=== PATIENT | female | born 1985 | race American Indian/Alaskan Native ===

== ENCOUNTER 2016-09-07 21:41 | Emergency (ER) | payer SELFPAY ==
[2016-09-07 22:02] VITALS: BP 99/55; PULSE 88; RESP 18; TEMP 98.4; O2SAT 93
[2016-09-07 23:18] LABS: HEMATOCRIT 33.5 % (34.0-47.0); MEAN CELL VOLUME 94.8 fl (81.0-99.0); MEAN CORPUSCULAR HGB CONC 32.7 g/dL (33.0-37.0); RED CELL DISTRIBUTION WIDTH 13.8 % (11.5-14.5); WHITE BLOOD COUNT 6.5 K/uL (4.8-10.8)
--- NOTE | 2016-09-07 23:19 | ED PDOC ---
HPI: General Adult Time Seen by Provider: 09/07/16 22:39 Chief Complaint (Nursing): Abdominal Pain Chief Complaint (Provider): urinary frequency, pelvic pain, flank pain History Per: Patient History/Exam Limitations: no limitations Onset/Duration Of Symptoms: Days Have you had recent travel within the past 21 days to any of the following countries: [place], [place], [place] or [place]?: No Current Symptoms Are (Timing): Still Present Additional Complaint(s): 31yo female presents to the ED with multiple complaints including urinary frequency, occasional pelvic pain, and b/l flank pain. Patient had a CT 3 days ago that was negative. Had US today that showed follicles in ovaries and is scheduled for a colposcopy. Denies dysuria, n/v. Patient has retained normal BMs. Past Medical History Reviewed: Historical Data, Nursing Documentation, Vital Signs Vital Signs: Last Vital Signs Temp 98.4 F 09/07/16 21:58 Pulse 88 09/07/16 21:58 Resp 18 09/07/16 21:58 BP 99/55 L 09/07/16 21:58 Pulse Ox 93 L 09/07/16 23:22 - Medical History PMH: Anemia Denies: Chronic Kidney Disease - Surgical History Surgical History: No Surg Hx - Family History Family History: States: No Known Family Hx - Home Medications Home Medications: Ambulatory Orders Medication Instructions Recorded Naproxen [Naprosyn] 500 mg PO BID PRN #14 tablet 05/05/16 Cholecalciferol (Vitamin D3) 2,000 unit PO DAILY 09/07/16 [Vitamin D3] Ferrous Sulfate [Feosol] 325 mg PO DAILY 09/07/16 - Allergies Allergies/Adverse Reactions: Allergies Allergy/AdvReac Type Severity Reaction Status Date / Time shellfish derived Allergy RASH Verified 09/07/16 22:20 Review of Systems ROS Statement: Except As Marked, All Systems Reviewed And Found Negative Gastrointestinal: Positive for: Other (normal BMs ). Negative for: Nausea, Vomiting Genitourinary Female: Positive for: Frequency, Pelvic Pain. Negative for: Dysuria Musculoskeletal: Positive for: Back Pain (b/l flank ) Physical Exam - Reviewed Nursing Documentation Reviewed: Yes Vital Signs Reviewed: Yes - Physical Exam Appears: Positive for: Well, No Acute Distress Head Exam: Positive for: ATRAUMATIC, NORMAL INSPECTION, NORMOCEPHALIC Skin: Positive for: Normal Color, Warm, Dry Eye Exam: Positive for: Normal appearance, EOMI, PERRL ENT: Positive for: Normal ENT Inspection Neck: Positive for: Normal, Painless ROM, Supple Cardiovascular/Chest: Positive for: Regular Rate, Rhythm. Negative for: Murmur , Tachycardia Respiratory: Positive for: Normal Breath Sounds. Negative for: Wheezing, Respiratory Distress Gastrointestinal/Abdominal: Positive for: Normal Exam, Soft. Negative for: Tenderness Back: Positive for: Normal Inspection. Negative for: L CVA Tenderness, R CVA Tenderness Extremity: Positive for: Normal ROM. Negative for: Deformity, Swelling Neurologic/Psych: Positive for: Alert, Oriented. Negative for: Motor/Sensory Deficits - Laboratory Results Result Diagrams: 09/07/16 23:13 09/07/16 23:13 - ECG O2 Sat by Pulse Oximetry: 93 Medical Decision Making Medical Decision Makin: Impression: chronic pelvic pain Plan: BMP, CBC US Pelvis/transvaginal reassess 130: IMPRESSION: 1. Probable fibroid uterus. 2. Incidental/non-acute findings are described above PT. feeling well, will f/u for culposcopy tomorrow. Scribe Attestation: Documented by Ricky Zimmerman acting as a scribe for Dionte Rayo MD. Provider Scribe Attestation: All medical record entries made by the Scribe were at my direction and personally dictated by me. I have reviewed the chart and agree that the record accurately reflects my personal performance of the history, physical exam, medical decision making, and the department course for this patient. I have also personally directed, reviewed, and agree with the discharge instructions and disposition. Disposition - Clinical Impression Clinical Impression: Abdominal cramps - Disposition Disposition: Routine/Home Disposition Time: 01:45 Condition: STABLE
[2016-09-07 23:31] LABS: BLOOD UREA NITROGEN 15 mg/dl (7-17); CALCIUM 9.6 mg/dL (8.4-10.2); CARBON DIOXIDE 24 mmol/L (22-30); CHLORIDE 105 mmol/L (98-107); GFR AFRICAN-AMERICAN > 60; GLUCOSE,RANDOM 87 mg/dL (65-105); POTASSIUM 3.5 MMOL/L (3.6-5.0); SODIUM 140 mmol/l (132-148)
[2016-09-08 00:06] LABS: RBC URINE 5 /hpf (0-3); URINE BILIRUBIN NEGATIVE (NEGATIVE); URINE BLOOD NEGATIVE (NEGATIVE); URINE CALCIUM OXALATE CRYSTALS FEW /hpf (<OCC); URINE COLOR YELLOW (YELLOW); URINE GLUCOSE (UA) NEG (Normal); URINE KETONE NEGATIVE (NEGATIVE); URINE LEUKOCYTE ESTERASE NEG Leu/uL (Negative); URINE PROTEIN NEGATIVE (NEGATIVE); URINE UROBILINOGEN 0.2-1.0 mg/dL (0.2-1.0); WBC URINE 2 /hpf (0-5)
--- NOTE | 2016-09-08 11:00 | US ---
PROCEDURE: HISTORY: pelvic pain, please visualize ovaries and bladder COMPARISON: None TECHNIQUE: Transvaginal transabdominal FINDINGS: The uterus measures 7.6 x 4.7 x 4.1 centimeters. The endometrium measures 1.1 centimeters. There is an anterior leiomyoma measuring 2.6 centimeters as well as posterior leiomyoma measuring 1.6 centimeters. The right ovary measures 3.3 x 2.9 centimeters. The left ovary measures 3.0 x 2.7 centimeters. There is no free fluid the pelvis. IMPRESSION: Leiomyomatous uterus.
== END 2016-09-08 02:11 | disposition home or self-care (01) ==
LOC: H.ER 21:41
DX: R10.2 Pelvic and perineal pain (principal); G89.29 Other chronic pain

== ENCOUNTER 2017-03-11 15:29 | Emergency (ER) | payer SELFPAY ==
[2017-03-11 15:42] VITALS: RESP 18; TEMP 97.7; O2SAT 99
[2017-03-11] MEDS ORDERED: Sodium Chloride 0.9% 1,000 ML IV STA (16:16)
[2017-03-11 16:52] LABS: BASO % 0.4 % (0.0-2.0); EOS % 0.4 % (0.0-4.0); HEMATOCRIT 35.4 % (34.0-47.0); LYMPH # 1.3 K/uL (1.0-4.3); LYMPH % 11.2 % (20.0-40.0); MEAN CORPUSCULAR HGB CONC 32.6 g/dL (33.0-37.0); MEAN PLATELET VOLUME 9.3 fl (7.2-11.7); MONO # 0.6 K/uL (0.0-0.8); MONO % 5.3 % (0.0-10.0); NEUT # 9.5 K/uL (1.8-7.0); NEUT % 82.7 % (50.0-75.0); RED CELL DISTRIBUTION WIDTH 13.6 % (11.5-14.5); WHITE BLOOD COUNT 11.5 K/uL (4.8-10.8)
[2017-03-11 16:56] LABS: ALB/GLOB RATIO 1.4 (1.0-2.1); ALKALINE PHOSPHATASE 45 U/L (38-126); ALT/SGPT 30 U/L (9-52); AST/SGOT 29 U/L (14-36); BILIRUBIN,TOTAL 0.3 mg/dl (0.2-1.3); BLOOD UREA NITROGEN 12 mg/dl (7-17); CALCIUM 9.4 mg/dL (8.4-10.2); CARBON DIOXIDE 26 mmol/L (22-30); CHLORIDE 108 mmol/L (98-107); GFR AFRICAN-AMERICAN > 60; GLUCOSE,RANDOM 90 mg/dL (65-105); POTASSIUM 4.1 MMOL/L (3.6-5.0); SODIUM 139 mmol/l (132-148)
--- NOTE | 2017-03-11 17:33 | ED PDOC ---
HPI: General Adult Time Seen by Provider: 03/11/17 15:46 Chief Complaint (Nursing): Abdominal Pain History Per: Patient Additional Complaint(s): Pt. states this morning she developed b/l lower abdominal pain greatest in the LLQ. Reports symptoms improved after a BM but then developed rectal pain after having the BM. Also states that she's felt nauseous but had no vomiting. Denies fever, dysuria, hematuria, flank pain, melena, hematochezia, BRBPR. Past Medical History Reviewed: Historical Data, Nursing Documentation, Vital Signs Vital Signs: Last Vital Signs Temp 97.7 F 03/11/17 15:39 Pulse 80 03/11/17 15:39 Resp 18 03/11/17 15:39 BP 99/59 L 03/11/17 15:39 Pulse Ox 99 03/11/17 17:34 - Medical History PMH: Anemia, Kidney Stones, Chronic Kidney Disease - Family History Family History: States: No Known Family Hx - Home Medications Home Medications: Ambulatory Orders Medication Instructions Recorded Naproxen [Naprosyn] 500 mg PO BID PRN #14 tablet 05/05/16 Cholecalciferol (Vitamin D3) 2,000 unit PO DAILY 09/07/16 [Vitamin D3] Ferrous Sulfate [Feosol] 325 mg PO DAILY 09/07/16 Pumpkin Seed Extract/Soy Germ [Azo 300 mg PO TID PRN #15 capsule 09/08/16 Bladder Control Capsule] Naproxen [Naprosyn] 500 mg PO BID PRN #30 tab 03/11/17 - Allergies Allergies/Adverse Reactions: Allergies Allergy/AdvReac Type Severity Reaction Status Date / Time shellfish derived Allergy RASH Verified 09/07/16 22:20 Review of Systems ROS Statement: Except As Marked, All Systems Reviewed And Found Negative Gastrointestinal: Positive for: Abdominal Pain, Rectal Pain Physical Exam - Reviewed Nursing Documentation Reviewed: Yes Vital Signs Reviewed: Yes - Physical Exam Appears: Positive for: Well, Non-toxic, No Acute Distress Head Exam: Positive for: ATRAUMATIC, NORMAL INSPECTION, NORMOCEPHALIC Skin: Positive for: Normal Color, Warm. Negative for: Rash Eye Exam: Positive for: EOMI, Normal appearance, PERRL ENT: Positive for: Normal ENT Inspection Neck: Positive for: Normal, Painless ROM Cardiovascular/Chest: Positive for: Regular Rate, Rhythm Respiratory: Positive for: CNT, Normal Breath Sounds Gastrointestinal/Abdominal: Positive for: Normal Exam, Bowel Sounds, Soft, Tenderness (mild RLQ abdominal tenderness). Negative for: Distended, Rebound Back: Positive for: Normal Inspection. Negative for: L CVA Tenderness, R CVA Tenderness Extremity: Positive for: Normal ROM Neurologic/Psych: Positive for: Alert, Oriented. Negative for: Aphasia, Facial Droop - Laboratory Results Result Diagrams: 03/11/17 16:39 03/11/17 16:39 - ECG O2 Sat by Pulse Oximetry: 99 - Progress ED Course And Treament: Labs ordered. CT abd/pelvis w/ IV contrast ordered. Pt. offered pain meds but refused. 1902 CT abd/pelvis w/ IV contrast: 1. Findings compatible with ruptured LEFT ovarian cyst. Case d/w Dr. Ballesteros who states pt. can be dc'd if pt. is hemodynamically stable. Pt. informed of results and states she currently does not have pain. Pt. in no distress. Instructed to f/u with OBGYN. Disposition - Clinical Impression Clinical Impression: Ruptured ovarian cyst - Patient ED Disposition Is Patient to be Admitted: No - Disposition Referrals: [facility] [Outside] Disposition: Routine/Home Disposition Time: 19:03 Condition: IMPROVED Additional Instructions: Follow up with your OBGYN for further evaluation. Return to ED immediately for any concerns or questions. Prescriptions: Naproxen [Naprosyn] 500 mg PO BID PRN #30 tab PRN Reason: Pain Instructions: Ovarian Cyst (ED) Forms: [employer] (Frisian) Print Language: KYRGYZ
[2017-03-11] MEDS ORDERED: Sodium Chloride 0.9% 50 ML IV ONE (17:43)
[2017-03-11] MEDS ORDERED: Iohexol 300 100 ML IJ ONE (17:43)
--- NOTE | 2017-03-11 19:03 | CT ---
EXAM: CT Abdomen and Pelvis With Intravenous Contrast CLINICAL HISTORY: 31 years old, female; Pain; Abdominal pain; Localized; Lower; Patient HX: Rlq llq pain. Constipation. Anemia kidney stone; Additional info: Llq/rlq abdominal pain TECHNIQUE: Axial computed tomography images of the abdomen and pelvis with intravenous contrast. All CT scans at this facility use one or more dose reduction techniques, viz.: automated exposure control; ma/kV adjustment per patient size (including targeted exams where dose is matched to indication; i.e. head); or iterative reconstruction technique. Coronal and sagittal reformatted images were created and reviewed. CONTRAST: 98 mL of OMNIPAQUE administered intravenously. COMPARISON: CT ABD AND PELVIS 2012-03-31 05:25 FINDINGS: Lower thorax: Minimal atelectasis/scarring. ABDOMEN: Liver: Unremarkable. No mass. Gallbladder and bile ducts: No calcified stones. No ductal dilation. Pancreas: No ductal dilation. No mass. Spleen: Too small to characterize lesion. No splenomegaly. Adrenals: No mass. Kidneys and ureters: Too small to characterize lesion within RIGHT kidney. No hydronephrosis. Stomach and bowel: Segmental areas of probable underdistention of LEFT colon. No definite mural thickening. No obstruction. Appendix: Normal caliber. No inflammation. PELVIS: Bladder: Unremarkable. Reproductive: 1.6 x 2.0 by 2.0 cm peripherally enhancing hypodensity with slightly crenulated margins within LEFT ovary. ABDOMEN and PELVIS: Intraperitoneal space: Small hyperdense free fluid within pelvis, likely hemorrhage. No free air. Bones/joints: No acute fracture. Soft tissues: Linear scarring within subcutaneous tissues. Vasculature: Unremarkable. No aneurysm. Lymph nodes: No pathologically enlarged lymph nodes. IMPRESSION: 1. Findings compatible with ruptured LEFT ovarian cyst. 2. Incidental/non-acute findings are described above.
[2017-03-11 19:39] VITALS: BP 106/62; PULSE 79
== END 2017-03-11 19:35 | disposition home or self-care (01) ==
LOC: SUPCPDRO 15:29 → H.ER 15:29
DX: N83.291 Other ovarian cyst, right side (principal); D64.9 Anemia, unspecified; K59.00 Constipation, unspecified; K62.89 Other specified diseases of anus and rectum; Z87.442 Personal history of urinary calculi
CPT/HCPCS: 74177; 80053; 81025; 85025; 99283; J7040; Q9967